=== PATIENT | male | born 1965 | race African-American/Black ===

== ENCOUNTER 2020-02-15 16:29 | Emergency (ER) | payer OTHER ==
[~2020-02-15] VITALS: Ht 172.7 cm; Wt 68.0 kg
--- NOTE | 2020-02-15 16:35 | NUR ---
PT [id number], FOUND UNRESPONSIVE S/P DONATING PLASMA. BG 20. 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
--- NOTE | 2020-02-15 16:45 | NUR ---
IV LINE ESTABLISHED L HAND 20.
--- NOTE | 2020-02-15 16:58 | NUR ---
PPROVIDED W/ JUICE AND JELLO.
--- NOTE | 2020-02-15 17:00 | NUR ---
SEEN AND EXAMINED BY
--- NOTE | 2020-02-15 17:10 | NUR ---
ER PHLEB AT BEDSIDE FOR BLOOD DRAW.
[2020-02-15 17:18] LABS: BASOPHILS # (AUTO) 0.1 /CMM (0.0-0.2); BASOPHILS % (AUTO) 0.6 % (0.0-2.0); EOSINOPHILS % (AUTO) 0.5 % (0.0-6.0); HEMATOCRIT 48 % (39-51); HEMOGLOBIN 14.9 g/dL (13.5-17.5); LYMPHOCYTES # (AUTO) 1.5 /CMM (0.8-4.8); LYMPHOCYTES % (AUTO) 18.2 % (20.0-44.0); MEAN CORPUSCULAR HGB CONC 31 g/dl (31.0-36.0); MEAN CORPUSCULAR VOLUME 77 fL (80-96); MONOCYTES # (AUTO) 0.8 /CMM (0.1-1.30); MONOCYTES % (AUTO) 9.3 % (2.0-12.0); NEUTROPHILS # (AUTO) 5.8 /CMM (1.8-8.9); NEUTROPHILS % (AUTO) 71.4 % (43.0-81.0); PLATELET COUNT (AUTO) 293 /CMM (150-450); RED BLOOD CELL COUNT(AUTO) 6.17 MIL/uL (4.5-6.0); WHITE BLOOD COUNT (AUTO) 8.2 K/uL (4.3-11.0)
[2020-02-15 17:31] LABS: CALCIUM, SERUM 8.6 mg/dL (8.5-10.1); CREATININE 0.9 mg/dL (0.6-1.3); POTASSIUM 3.6 mmol/L (3.5-5.1)
[2020-02-15 18:08] VITALS: BP 143/79
--- NOTE | 2020-02-15 18:09 | NUR ---
AA, appropriate-responsive. Ambulatory-steady Patient discharged to home in stable condition. Written and verbal after care instructions given. Patient verbalizes understanding of instruction.
== END 2020-02-15 18:09 | disposition home or self-care (01) ==
LOC: ER 16:33
DX: E11.649 Type 2 diabetes mellitus with hypoglycemia without coma (principal); I10 Essential (primary) hypertension
CPT/HCPCS: 36415; 80048-TC; 82962-TC; 85025-TC